=== PATIENT | male | born 1955 | race Caucasian/White ===

== ENCOUNTER 2016-07-24 13:10 | Emergency (ER) | payer OTHER, MEDICAID ==
[2016-07-24 13:13] VITALS: BP 177/86; PULSE 109; RESP 20; TEMP 97.5; O2SAT 92
--- NOTE | 2016-07-24 15:04 | PD ---
HPI Chief Complaint: Oral / Dental Pain or Problem Time Seen by Provider: 15:03 Travel History International Travel<30 days: No Contact w/Intl Traveler<30days: No Traveled to known affect area: No History of Present Illness HPI 60-year-old male who is legally blind with history of diabetes and poor dentition presents to emergency department for evaluation of left lower mandibular pain with neck swelling. Patient states he is having some tooth aching over the last couple of days but this moved to his face and now is extending into his neck. He states he has been having a really difficult time controlling his blood glucose since this happened. No definite fever. Has felt chilled. His overall not felt real well. Denies any other symptoms at this time. PFSH Past Medical History Diabetes: Yes Social History Alcohol Use: No Tobacco Use: No Substance Use: No Allergies-Medications (Allergen,Severity, Reaction): Coded Allergies: Shrimp (Verified Allergy, Severe, 07/24/16) Reported Meds & Prescriptions Reported Meds & Active Scripts Active Peridex Liq (Chlorhexidine Gluconate (Mouth) Liq) 0.12% Soln 15 Ml SWISH-SPIT BID 14 Days Ibuprofen 600 Mg Tab 600 Mg PO Q8HR PRN Penicillin V Potassium 500 Mg Tab 500 Mg PO Q6H 10 Days Review of Systems Except as stated in HPI: all other systems reviewed are Neg Physical Exam Narrative GENERAL: Well-nourished male patient, ambulatory and in no acute distress SKIN: Warm and diaphoretic HEAD: Atraumatic. Normocephalic. Mild facial swelling along the left mandible extending into the neck. EYES: Pupils equal and round. No scleral icterus. No injection or drainage. ENT: No nasal bleeding or discharge. Mucous membranes pink and moist. NECK: Trachea midline. No JVD. Left cervical lymphadenopathy with questionable submental adenopathy on the left side. CARDIOVASCULAR: Regular rate and rhythm. No murmur appreciated. RESPIRATORY: No accessory muscle use. Diminished to auscultation. Breath sounds equal bilaterally. GASTROINTESTINAL: Abdomen soft, non-tender, nondistended. Hepatic and splenic margins not palpable. MUSCULOSKELETAL: No obvious deformities. No clubbing. No cyanosis. No edema. NEUROLOGICAL: Awake and alert. No obvious cranial nerve deficits. Motor grossly within normal limits. Normal speech. PSYCHIATRIC: Appropriate mood and affect; insight and judgment normal. Data Data Last Documented VS Vital Signs Date Time Temp Pulse Resp B/P Pulse Ox O2 Delivery O2 Flow Rate FiO2 07/24/16 17:28 98.5 94 18 136/84 93 Room Air Orders Iv Access Insert/Monitor (07/24/16 14:57) Complete Blood Count With Diff (07/24/16 14:57) Basic Metabolic Panel (Bmp) (07/24/16 14:57) Ct Soft Tiss Neck W Iv Cont (07/24/16 ) Beta Hydroxybutyrate (Acetone) (07/24/16 16:14) Urinalysis - C+S If Indicated (07/24/16 16:14) Iodixanol 320 Inj (Rad Ct) (Visipaque 32 (07/24/16 16:45) Sodium Chlor 0.9% 1000 Ml Inj (Ns 1000 M (07/24/16 17:00) Morphine Inj (Morphine Inj) (07/24/16 17:15) Insulin Human Regular Inj (Novolin R Inj (07/24/16 18:00) Blood Glucose (07/24/16 18:35) Labs Laboratory Tests Test 07/24/16 07/24/16 15:30 16:00 White Blood Count 7.7 TH/MM3 Red Blood Count 5.23 MIL/MM3 Hemoglobin 15.5 GM/DL Hematocrit 43.9 % Mean Corpuscular Volume 84.0 FL Mean Corpuscular Hemoglobin 29.6 PG Mean Corpuscular Hemoglobin 35.2 % Concent Red Cell Distribution Width 13.4 % Platelet Count 255 TH/MM3 Mean Platelet Volume 8.1 FL Neutrophils (%) (Auto) 66.8 % Lymphocytes (%) (Auto) 24.5 % Monocytes (%) (Auto) 7.6 % Eosinophils (%) (Auto) 0.6 % Basophils (%) (Auto) 0.5 % Neutrophils # (Auto) 5.1 TH/MM3 Lymphocytes # (Auto) 1.9 TH/MM3 Monocytes # (Auto) 0.6 TH/MM3 Eosinophils # (Auto) 0.0 TH/MM3 Basophils # (Auto) 0.0 TH/MM3 CBC Comment DIFF FINAL Differential Comment Sodium Level 134 MEQ/L Potassium Level 4.1 MEQ/L Chloride Level 100 MEQ/L Carbon Dioxide Level 22.5 MEQ/L Anion Gap 12 MEQ/L Blood Urea Nitrogen 11 MG/DL Creatinine 0.87 MG/DL Estimat Glomerular Filtration 89 ML/MIN Rate Random Glucose 425 MG/DL Calcium Level 8.5 MG/DL B-Hydroxybutyrate 0.91 MMOL/L Urine Color YELLOW Urine Turbidity CLEAR Urine pH 5.5 Urine Specific [place] 1.039 Urine Protein NEG mg/dL Urine Glucose (UA) 1000 mg/dL Urine Ketones 40 mg/dL Urine Occult Blood NEG Urine Nitrite NEG Urine Bilirubin NEG Urine Urobilinogen LESS THAN 2.0 MG/DL Urine Leukocyte Esterase NEG Urine RBC LESS THAN 1 /hpf Urine WBC LESS THAN 1 /hpf Microscopic Urinalysis Comment CULT NOT INDICATED MDM Medical Decision Making Medical Screen Exam Complete: Yes Emergency Medical Condition: Yes Medical Record Reviewed: Yes Differential Diagnosis Dentalgia versus dental [place] versus dental abscess versus Carl angina versus sepsis versus electrolyte abnormality Narrative Course 60-year-old male presents to the emergency department for evaluation a left sided facial swelling and pain. Patient appears that he does not feel well. He has diaphoretic. CBC is without acute concern. BMP is with blood glucose of 425. Patient was given IV fluids. CT imaging of the soft tissue neck is complete for evaluation of the swelling patient is treated for pain. Patient verbalized marked improvement in his symptoms. Recheck of blood glucose is 286. I discussed the patient with my attending physician Dr. Gray. Patient will be discharged at this time. Diagnosis Primary Impression: Dentalgia Additional Impressions: Dental caries Hyperglycemia due to type 2 diabetes mellitus Qualified Code: E11.65 - Type 2 diabetes mellitus with hyperglycemia, with long-term current use of insulin Referrals: Primary Care Physician Patient Instructions: Dental Caries (ED), General Instructions Additional Instructions: It is important that you closely monitor your blood glucose Take medication as prescribed Follow-up with a primary care provider Seek dental evaluation as soon as possible Return immediately to the emergency department with any acute worsening of symptoms Med/Other Pt SpecificInfo: Prescription(s) given Scripts Chlorhexidine Gluconate (Mouth) Liq (Peridex Liq)0.12% Soln15 Ml SWISH-SPIT BID 14 Days Ref 0 Prov:Alysia Pierce 07/24/16 Ibuprofen 600 Mg Nlm841 Mg PO Q8HR PRN (PAIN) #30 TAB Ref 0 Prov:Alysia Pierce 07/24/16 Penicillin V Potassium 500 Mg Sdl143 Mg PO Q6H 10 Days Ref 0 Prov:Alysia Pierce 07/24/16 Disposition: 01 DISCHARGE HOME Condition: Stable Alysia Pierce Jul 24, 2016 15:04
[2016-07-24 15:44] LABS: AUTOMATED NEUTROPHIL # 5.1 TH/MM3 (1.8-7.7); BASOPHIL % 0.5 % (0.0-2.0); EOSINOPHIL % 0.6 % (0.0-4.0); HEMATOCRIT 43.9 % (39.0-51.0); HEMO FLAGS DIFF FINAL; LYMPH % 24.5 % (9.0-44.0); LYMPHOCYTE # 1.9 TH/MM3 (1.0-4.8); MEAN CORPUSCULAR HEMOGLOBIN 29.6 PG (27.0-34.0); MEAN CORPUSCULAR HGB CONC 35.2 % (32.0-36.0); MONO % 7.6 % (0.0-8.0); NEUT % 66.8 % (16.0-70.0); PLATELET COUNT 255 TH/MM3 (150-450); RED BLOOD COUNT 5.23 MIL/MM3 (4.50-5.90); RED CELL DISTRIBUTION WIDTH 13.4 % (11.6-17.2); WHITE BLOOD COUNT 7.7 TH/MM3 (4.0-11.0)
[2016-07-24 16:05] LABS: BICARBONATE 22.5 MEQ/L (21.0-32.0); POTASSIUM 4.1 MEQ/L (3.5-5.1)
[2016-07-24] MEDS ORDERED: IODIXANOL 320 MG/ML 10 ML VIAL (for Rad CT) IV ONE (16:45)
[2016-07-24 16:47] LABS: BLOOD, URINE NEG (NEG); COMMENT (UR) CULT NOT INDICATED; CULTURE IF INDICATED CULT NOT INDICATED; GLUCOSE,URINE 1000 mg/dL (NEG); KETONE, URINE 40 mg/dL (NEG); NITRITE,URINE NEG (NEG); PH, URINE 5.5 (5.0-8.5); URINE COLOR YELLOW (YELLW/STRAW)
[2016-07-24] MEDS ORDERED: SODIUM CHLOR 0.9% 1000 ML INJ 1,000 ML IV ONE (17:00)
[2016-07-24] MEDS ORDERED: MORPHINE SULFATE 4 MG/ML INJ IV PUSH ONE (17:15)
[2016-07-24 17:28] VITALS: BP 136/84; PULSE 94; RESP 18; TEMP 98.5; O2SAT 93
--- NOTE | 2016-07-24 17:29 | RADRPT ---
EXAM DATE/TIME: 07/24/2016 16:42 [facility] COMPARISON: No previous studies available for comparison. INDICATIONS : Left mandibular pain with swelling since sunday. IV CONTRAST: 75 cc Visipaque (iodixanol) IV RADIATION DOSE: 25.50 CTDIvol (mGy) MEDICAL HISTORY : Diabetes mellitus type 2. SURGICAL HISTORY : None. ENCOUNTER: Initial ACUITY: 3 days PAIN SCALE: 7/10 LOCATION: Left mandible TECHNIQUE: Volumetric scanning of the neck was performed. Using automated exposure control and adjustment of th e mA and/or kV according to patient size, radiation dose was kept as low as reasonably achievable to obtain optimal diagnostic quality images. FINDINGS: Examination of the skull base demonstrates no evidence of deep infiltrating mucosal lesion. The oroph arynx, hypopharynx, glottic and subglottic airway demonstrate no abnormality. An azygous fissure is p resent which can be seen as a normal variation. Examination of the neck for adenopathy demonstrates no abnormally large lymph nodes by CT criteria. T he thyroid gland demonstrates no abnormality. Lung apices demonstrate no evidence of pulmonary nodule. Bone windows are unremarkable. CONCLUSION: 1. Unremarkable CT scan of the neck. No masses are identified. Micheal Mathur MD on July 24, 2016 at 17:24 Board Certified Radiologist. This report was verified electronically.
[2016-07-24] MEDS ORDERED: IBUP-232 PO (17:50)
[2016-07-24] MEDS ORDERED: PERI0.126 SWISH-SPIT (17:50)
[2016-07-24] MEDS ORDERED: PENI500T PO (17:50)
[2016-07-24] MEDS ORDERED: INSULIN HUMAN REGULAR 1,000 UNITS/10 ML VIAL SQ ONE (18:00)
== END 2016-07-24 19:09 | disposition home or self-care (01) ==
LOC: NEPB 13:10
DX: K08.89 Other specified disorders of teeth and supporting structures (principal); K02.9 Dental caries, unspecified; E11.65 Type 2 diabetes mellitus with hyperglycemia; H54.8 Legal blindness, as defined in USA
CPT/HCPCS: 70491; 80048; 81001; 82010; 85025; 96361; 96372; 96374; 99285; J1815; J2270; J7030; Q9967